=== PATIENT | female | born 1965 | race Caucasian/White ===

== ENCOUNTER 2017-04-01 09:26 | Emergency (ER) | payer SELFPAY ==
[2017-04-01 10:48] VITALS: BP 156/86
--- NOTE | 2017-04-01 12:14 | UC ---
Upper Extremity HPI - HPI Summary HPI Summary: pt c/o sudden onset of right wrist pain and swelling s/p pushing an escape ren on school bus today. pt states while she was pushihng the ren door she heard a "pop" and sudden onset of right wrist pain, swelling and decrease in ROM. - History of Current Complaint Chief Complaint: UCUpperExtremity Stated Complaint: WC-RT WRIST PAIN Time Seen by Provider: 04/01/17 11:47 ?: No Onset/Duration: Sudden Onset, Lasting Hours Severity Initially: Moderate Severity Currently: Moderate Pain Intensity: 8 Location Of Pain: Is Discrete @ - right wrist Aggravating Factor(s): Movement, Lifting, Flexion, Extension Alleviating Factor(s): Nothing Associated Signs And Symptoms: Positive: Swelling Related History: Dominant Hand Right - Risk Factors Non-Orthopedic Risk Factor: Negative DVT Risk Factors: Negative Septic Arthritis Risk Factor: Negative Compartment Syndrome Risk Factors: Pain - Allergies/Home Medications Allergies/Adverse Reactions: Allergies Allergy/AdvReac Type Severity Reaction Status Date / Time No Known Allergies Allergy Verified 04/01/17 10:44 Home Medications: Home Medications Naproxen Sodium [Aleve] 220 mg PO BID 04/01/17 [History Confirmed 04/01/17] Pantoprazole TAB (NF) [Protonix TAB (NF)] 20 mg PO DAILY 04/01/17 [History Confirmed 04/01/17] PMH/Surg Hx/FS Hx/Imm Hx Previously Healthy: Yes - Surgical History Surgical History: Yes Surgery Procedure, Year, and Place: gallbladder removal. ovarian cyst removal - Family History Known Family History: Positive: Cardiac Disease - Social History Occupation: Employed Full-time Lives: With Family Alcohol Use: Occasionally Substance Use Type: None Smoking Status (MU): Heavy Every Day Tobacco Smoker Type: Cigarettes Amount Used/How Often: 1/2 ppd Have You Smoked in the Last Year: Yes Review of Systems Constitutional: Negative Skin: Negative Eyes: Negative ENT: Negative Respiratory: Negative Cardiovascular: Negative Gastrointestinal: Negative Genitourinary: Negative Motor: Decreased ROM - right wrist Neurovascular: Negative Musculoskeletal: Arthralgia, Decreased ROM - right wrist, Myalgia Neurological: Negative Psychological: Negative Is Patient Immunocompromised?: No All Other Systems Reviewed And Are Negative: Yes Physical Exam Triage Information Reviewed: Yes Appearance: Pain Distress - mild Vital Signs: Initial Vital Signs Temp 98.2 F 04/01/17 10:41 Pulse 72 04/01/17 10:41 Resp 16 04/01/17 10:41 BP 156/86 04/01/17 10:41 Pulse Ox 100 04/01/17 10:41 Vital Signs Reviewed: Yes Eye Exam: Normal ENT Exam: Normal Neck exam: Normal Respiratory Exam: Normal Cardiovascular Exam: Normal Musculoskeletal Exam: Other Musculoskeletal: Positive: ROM Limited @ - right wrist, Edema @ - lateral, distal radius Neurological Exam: Normal Psychological Exam: Normal Skin Exam: Normal Diagnostics - Laboratory Diagnostic Studies Completed/Ordered: xray: IMPRESSION: NO EVIDENCE FOR FRACTURE , IF THE PATIENT'S SYMPTOMS PERSIST RECOMMEND. FOLLOW-UP IMAGING. - Radiology No standard instances Radiology Interpretation Completed By: Radiologist - IMPRESSION: NO EVIDENCE FOR FRACTURE, IF THE PATIENT'S SYMPTOMS PERSIST RECOMMEND FOLLOW-UP IMAGING. Upper Extremity Course/Dx - Course Course Of Treatment: xray:IMPRESSION: NO EVIDENCE FOR FRACTURE, IF THE PATIENT' S SYMPTOMS PERSIST RECOMMEND. FOLLOW-UP IMAGING. - Differential Dx/Diagnosis Differential Diagnosis/HQI/PQRI: Fracture (Closed), Strain, Sprain Provider Diagnoses: right wrist sprain Discharge - Discharge Plan Condition: Stable Disposition: HOME Patient Education Materials: Wrist Injury (ED), Wrist Sprain (ED) Forms: *Work Release Referrals: Ben Horton MD [Medical Doctor] - If Needed Musa Courtney NP [Primary Care Provider] - If Needed
--- NOTE | 2017-04-01 12:27 | RAD ---
INDICATION: Right wrist injury. TECHNIQUE: 4 views of the right wrist were obtained. FINDINGS: The bones are in normal alignment. No fracture is seen. Joint spaces appear maintained. There is mild osteoarthritic change in the first carpometacarpal joint. IMPRESSION: NO EVIDENCE FOR FRACTURE, IF THE PATIENT'S SYMPTOMS PERSIST RECOMMEND FOLLOW-UP IMAGING.
== END 2017-04-01 12:43 | disposition home or self-care (01) ==
LOC: UCCORT 09:26
DX: S63.501A Unspecified sprain of right wrist, initial encounter (principal); X50.0XXA Overexertion from strenuous movement or load, initial encounter; Y93.89 Activity, other specified; Y92.9 Unspecified place or not applicable; Y99.0 Civilian activity done for income or pay; F17.210 Nicotine dependence, cigarettes, uncomplicated
CPT/HCPCS: 99212; G0463

== ENCOUNTER 2017-05-07 10:46 | Emergency (ER) | payer OTHER ==
--- NOTE | 2017-05-07 11:30 | UC ---
Lower Extremity/Ankle HPI - HPI Summary HPI Summary: Pt presents with left heel/ankle pain since yesterday. She tells me that last night she was letting her dog outside to go to the bathroom and he quickly pulled on his leash - she lunged forward down her steps and planted her left foot. Had immediate pain in her left foot, but was able to ambulate. Today she woke with increased pain in her left heel - unable to ambulate without significant pain. Has not taken anything OTC for this. Denies numbness or tingling - History of Current Complaint Stated Complaint: ANKLE PAIN Time Seen by Provider: 05/07/17 11:30 Hx Obtained From: Patient Onset/Duration: Sudden Onset Severity Initially: Moderate Severity Currently: Moderate Pain Intensity: 8 Pain Scale Used: 0-10 Numeric Aggravating Factor(s): Standing, Ambulation Alleviating Factor(s): Rest, Elevation Able to Bear Weight: Yes - Allergies/Home Medications Allergies/Adverse Reactions: Allergies Allergy/AdvReac Type Severity Reaction Status Date / Time No Known Allergies Allergy Verified 05/07/17 11:37 Home Medications: Home Medications raNITIdine HCl [Zantac 75] 1 tab PO DAILY 05/07/17 [History Confirmed 05/07/17] PMH/Surg Hx/FS Hx/Imm Hx Previously Healthy: Yes GI/ History: Gastroesophageal Reflux - Surgical History Surgical History: Yes Surgery Procedure, Year, and Place: gallbladder removal. ovarian cyst removal, . [facility] 1978 - Family History Known Family History: Positive: Cardiac Disease - Social History Lives: With Family Alcohol Use: Occasionally Substance Use Type: None Smoking Status (MU): Heavy Every Day Tobacco Smoker Type: Cigarettes Amount Used/How Often: 1/2 ppd Have You Smoked in the Last Year: Yes Review of Systems Constitutional: Negative Skin: Negative Respiratory: Negative Cardiovascular: Negative Motor: Negative Neurovascular: Negative Musculoskeletal: Other: - Left heel pain Neurological: Negative Psychological: Negative All Other Systems Reviewed And Are Negative: Yes Physical Exam - Summary Physical Exam Summary: GENERAL: NAD. WDWN. No pain distress. SKIN: No rashes, sores, ulcers, masses, lesions. NECK: Supple. Nontender. No lymphadenopathy. CHEST: CTAB. No r/r/w. No accessory muscle use. Breathing comfortably and in no distress. CV: RRR. Without m/r/g. Pulses intact PT and DP. Brisk cap refill. MSK: TTP over left calcaneus. Pain in plantar calcaneus with dorsiflexion and plantar flexion. Strength 5/5. No edema or obvious bony deformities. Negative talar tilt. No increased laxity. Negative [place] test. NEURO: Alert. Sensations intact and symmetric B/L LEs PSYCH: Age appropriate behavior. Triage Information Reviewed: Yes Lower Extremity Course/Dx - Course Course Of Treatment: XR: IMPRESSION: NORMAL LEFT FOOT AND ANKLE RADIOGRAPH. Suspect soft tissue injury with continued left heel pain. Advised RICE, ibuprofen, use post op shoe and crutches as needed for comfort. - Differential Dx/Diagnosis Provider Diagnoses: Left heel pain Discharge - Discharge Plan Condition: Stable Disposition: HOME Patient Education Materials: Metatarsalgia (DC) Referrals: Musa Courtney NP [Primary Care Provider] - Rivas Dos Santos MD [Medical Doctor] - If Needed Additional Instructions: If you develop a fever, shortness of breath, chest pain, new or worsening symptoms - please call your PCP or go to the ED. 1) Rest, Ice, and elevate your heel as much as possible over the next 24-48hours 2) May take ibuprofen 600mg every 6-8hrs as needed for pain 3) Use the crutches and post op shoe as needed for comfort. 4) If your symptoms worsen or persist greater than 7-10 days - please call Orthopedics at the number below to schedule a follow up appointment.
[2017-05-07 11:36] VITALS: BP 109/83
--- NOTE | 2017-05-07 13:17 | RAD ---
INDICATION: Lateral left foot and ankle pain after slip and fall injury COMPARISON: None. TECHNIQUE: 3 views of the left ankle and 3 views of the left foot were obtained. FINDINGS: The well corticated bones exhibit normal alignment. Joint spaces appear maintained. No fracture is seen. IMPRESSION: NORMAL LEFT FOOT AND ANKLE RADIOGRAPH. If the patient's symptoms persist, follow-up imaging is recommended.
== END 2017-05-07 13:28 | disposition home or self-care (01) ==
LOC: UCEAST 10:46
DX: M79.672 Pain in left foot (principal); Z87.891 Personal history of nicotine dependence
CPT/HCPCS: 99213; G0463